=== PATIENT | male | born 1965 | race Caucasian/White ===

== ENCOUNTER 2017-03-26 12:31 | Inpatient (IN) | payer BC ==
[~2017-03-26] VITALS: Ht 177.8 cm; Wt 88.7 kg
[2017-03-26 13:44] LABS: HEMATOCRIT 41.8 % (38.0-50.0); MCHC 36.4 G/DL (30.0-36.0); MCV 90.7 FL (86-99); MEAN PLAT.VOLUME 10.4 uM^3 (9.0-12.4); PLATELET COUNT 130 K/uL (156-360); RBC DIS.WIDTH-CV 11.2 % (11.8-14.6); RBC DIS.WIDTH-SD 36.8 % (39-53); RED BLOOD COUNT 4.61 M/uL (4.00-5.50); WHITE BLOOD COUNT 6.4 K/uL (4.1-10.2)
[2017-03-26 13:58] LABS: CHLORIDE 104 mEq/L (99-109); POTASSIUM 3.7 mEq/L (3.7-5.4); SODIUM 139 mEq/L (136-147)
[2017-03-26 13:59] LABS: GLUCOSE 106 mg/dL (70-99)
[2017-03-26 14:01] LABS: ANION GAP 14 MEQ/L (2-14)
[2017-03-26 14:03] LABS: GFR ESTIMATE (CALCULATED) > 59 mL/min/; TROP-I INTERPRETATION POSITIVE
[2017-03-26 14:04] LABS: UREA NITROGEN (BUN) 12 mg/dL (9-23)
[2017-03-26 14:07] LABS: TROPONIN-I 0.61 ng/mL (0.0-0.30)
[2017-03-26] MEDS ORDERED: VITAMIN POWDER PO (15:43)
[2017-03-26 16:24] LABS: PROTHROMBIN TIME 11.4 SEC (10.2-12.9)
[2017-03-26 16:27] LABS: PTT 29.7 SEC (25-37)
[2017-03-26 18:15] LABS: TROP-I INTERPRETATION POSITIVE
[2017-03-26 18:49] LABS: TROPONIN-I 1.12 ng/mL (0.0-0.30)
[2017-03-26 19:50] VITALS: BP 154/94
[2017-03-26 20:04] VITALS: BP 154/94
[2017-03-26 21:30] VITALS: BP 136/85
[2017-03-26 22:29] LABS: TROP-I INTERPRETATION POSITIVE; TROPONIN-I 1.23 ng/mL (0.0-0.30)
[2017-03-27] VITALS (8 sets, daily range): BP systolic 118–141; BP diastolic 77–95
[2017-03-27 05:11] LABS: HEMATOCRIT 35.7 % (38.0-50.0); MCH 34.7 PG (29.0-34.0); MCHC 37.5 G/DL (30.0-36.0); MCV 92.5 FL (86-99); MEAN PLAT.VOLUME 10.5 uM^3 (9.0-12.4); PLATELET COUNT 119 K/uL (156-360); RBC DIS.WIDTH-CV 11.7 % (11.8-14.6); RBC DIS.WIDTH-SD 39.3 % (39-53); RED BLOOD COUNT 3.86 M/uL (4.00-5.50); WHITE BLOOD COUNT 5.3 K/uL (4.1-10.2)
[2017-03-27 05:32] LABS: TROP-I INTERPRETATION POSITIVE; TROPONIN-I 0.88 ng/mL (0.0-0.30)
[2017-03-27 05:36] LABS: ALKALINE PHOSPHATASE 45 IU/L (3-129); ANION GAP 9 MEQ/L (2-14); CHLORIDE 105 MEQ/L (99-109); GFR ESTIMATE (CALCULATED) > 59 mL/min/; GLUCOSE 129 mg/dL (70-99); HDL CHOLESTEROL 46 MG/DL (Desirable>=40); LDL CHOLESTEROL 82 mg/dL (Desirable<100); NON-HDL CHOLESTEROL 111 mg/dL (Desirable<160); POTASSIUM 3.7 MEQ/L (3.7-5.4); SAMPLE HEMOLYSIS CHECK 0; SAMPLE ICTERIC CHECK 0; SAMPLE LIPEMIA CHECK 0; SODIUM 139 MEQ/L (136-147); TOTAL BILIRUBIN 2.1 MG/DL (0.0-1.0); TOTAL CHOLESTEROL 157 mg/dL (Desirable<200); TRIGLYCERIDES 145 MG/DL (Normal: <150); UREA NITROGEN (BUN) 10 mg/dL (9-23)
[2017-03-27 07:25] LABS: Estimated Average Glucose 88 mg/dL (70-123); HEMOGLOBIN A1c (GLYCOHEMOGLOB) 4.7 % HGB (Below 5.7)
[2017-03-28 04:23] VITALS: BP 105/70
[2017-03-28 07:30] VITALS: BP 113/75
[2017-03-28] MEDS ORDERED: ASPIR-LOW81 MG PO (11:40)
[2017-03-28] MEDS ORDERED: LISINOPRIL20 MG PO (11:40)
[2017-03-28] MEDS ORDERED: LOPRESSOR50 MG PO (11:40)
[2017-03-28] MEDS ORDERED: CRESTOR20 MG PO (11:40)
[2017-03-28] MEDS ORDERED: NICODERM CQ1 EAC1 TD (11:43)
[2017-03-28] MEDS ORDERED: TYLENOL REGULA325 MG PO (12:04)
== END 2017-03-28 12:13 | disposition home or self-care (01) | DRG 281 ==
LOC: EME 12:31 → 4EAST 15:12 → EDOF 15:12 → ENRESERV 15:13 → 4EAST 19:45 → ENPENDDIS 03-28 12:08 → 4EAST 03-28 12:13
PROVIDERS: Physician Assistant; Student in an Organized Health Care Education/Training Program
DX: I21.4 Non-ST elevation (NSTEMI) myocardial infarction (principal); I25.10 Atherosclerotic heart disease of native coronary artery without angina pectoris; I16.1 Hypertensive emergency; I10 Essential (primary) hypertension; D69.6 Thrombocytopenia, unspecified; E78.5 Hyperlipidemia, unspecified; F17.210 Nicotine dependence, cigarettes, uncomplicated
CPT/HCPCS: 71020; 71275; 80048; 80053; 80061; 83036; 84484; 85027; 85379; 85610; 85730; 87040; 93005; 93306; 99281; 99285; C1769; C1887; J1644; J2250; J3010; J7030; J7040